=== PATIENT | female | born 1985 | race Caucasian/White ===

== ENCOUNTER 2017-01-18 20:55 | Emergency (ER) | payer MEDICAID, OTHER ==
[~2017-01-18 20:55] MED LIST: PREN0.01 PO; TYLE500T PO
[2017-01-18 20:59] VITALS: BP 118/72; PULSE 72; RESP 20; TEMP 97.9; O2SAT 99
--- NOTE | 2017-01-18 21:25 | PD ---
HPI Chief Complaint: Flank/Kidney Pain Time Seen by Provider: 21:05 Travel History International Travel<30 days: No Contact w/Intl Traveler<30days: No Traveled to known affect area: No History of Present Illness HPI The patient is a 4-year-old female that complains of bilateral flank pain, urgency and frequency without dysuria starting yesterday. She denies any fever but she never took her temperature at home. She denies any vomiting or diarrhea but does have nausea. She does not believe that she is . PFSH Past Medical History Arthritis: Yes Bipolar Disorder: Yes Anxiety: Yes (ANXIETY/PANIC ATTACKS) Depression: Yes Cardiovascular Problems: No Diminished Hearing: No Endocrine: No Gastrointestinal Disorders: Yes (ULCERATIVE COLITIS) Genitourinary: Yes Headaches: Yes Immune Disorder: No Musculoskeletal: Yes Neurologic: No Reproductive: Yes (endometriosis) Respiratory: Yes (ASTHMA CHILD) Immunizations Current: Yes LMP: MONDAY : 4 Para: 1 Miscarriage: 1 : 1 Dilation and Curettage (D&C): Yes Past Surgical History Abdominal Surgery: Yes (lapAroscopy x5, IUD RETRIEVAL) Section: Yes Cholecystectomy: Yes Gynecologic Surgery: Yes (LEEP & LAP PROCEDURE DONE) Oral Surgery: Yes Tonsillectomy: Yes Other Surgery: Yes (ADENOIDS AND TONSILS REMOVED, CHOLYCYSTECTOMY, C SEC, 4 LAPS ENDO) Social History Alcohol Use: No Tobacco Use: No (QUIT IN MAY 2014, COUPLE YEARS) 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 Her vital signs are normal. SKIN: Focused skin assessment warm/dry. No skin rash is seen. HEAD: Atraumatic. Normocephalic. EYES: Pupils equal and round. No scleral icterus. No injection or drainage. ENT: No nasal bleeding or discharge. Mucous membranes pink and moist. NECK: Trachea midline. No JVD. CARDIOVASCULAR: Regular rate and rhythm. No murmur appreciated. RESPIRATORY: No accessory muscle use. Clear to auscultation. Breath sounds equal bilaterally. GASTROINTESTINAL: Abdomen soft, with tenderness over both flanks, no guarding or rebound is present, nondistended. Hepatic and splenic margins not palpable. MUSCULOSKELETAL: No obvious deformities. No clubbing. No cyanosis. No edema. I am able to reproduce the patient's pain by pressing on the musculature both the left and to the right of the lumbar spine. NEUROLOGICAL: Awake and alert. No obvious cranial nerve deficits. Motor grossly within normal limits. Normal speech. PSYCHIATRIC: Appropriate mood and affect; insight and judgment normal. Data Data Last Documented VS Vital Signs Date Time Temp Pulse Resp B/P (MAP) Pulse Ox O2 Delivery O2 Flow Rate FiO2 01/18/17 22:45 64 18 120/73 (89) 100 Room Air 01/18/17 20:59 97.9 Orders Orders Ed Urine Pregnancytest Poc (01/18/17 21:21) Urinalysis - C+S If Indicated (01/18/17 21:25) Complete Blood Count With Diff (01/18/17 22:17) Comprehensive Metabolic Panel (01/18/17 22:17) Lipase (01/18/17 22:17) Ct Abd/Pel W/O Iv Contrast (01/18/17 22:17) Sodium Chlor 0.9% 1000 Ml Inj (Ns 1000 M (01/18/17 22:30) Ondansetron Inj (Zofran Inj) (01/18/17 22:30) Ketorolac Inj (Toradol Inj) (01/18/17 22:45) Labs Laboratory Tests Test 01/18/17 21:20 01/18/17 22:28 Urine Color YELLOW Urine Turbidity CLEAR Urine pH 6.0 Urine Specific [place] 1.033 Urine Protein TRACE mg/dL Urine Glucose (UA) NEG mg/dL Urine Ketones TRACE mg/dL Urine Occult Blood MOD Urine Nitrite NEG Urine Bilirubin NEG Urine Leukocyte Esterase NEG Urine RBC 3-5 /hpf Urine WBC 0-2 /hpf Urine Squamous Epithelial Cells 0-5 /hpf Urine Bacteria NONE /hpf Microscopic Urinalysis Comment CULT NOT INDICATED White Blood Count 5.4 TH/MM3 Red Blood Count 4.18 MIL/MM3 Hemoglobin 12.5 GM/DL Hematocrit 36.8 % Mean Corpuscular Volume 88.1 FL Mean Corpuscular Hemoglobin 30.0 PG Mean Corpuscular Hemoglobin Concent 34.1 % Red Cell Distribution Width 12.9 % Platelet Count 162 TH/MM3 Mean Platelet Volume 8.0 FL Neutrophils (%) (Auto) 45.5 % Lymphocytes (%) (Auto) 45.7 % Monocytes (%) (Auto) 6.7 % Eosinophils (%) (Auto) 1.6 % Basophils (%) (Auto) 0.5 % Neutrophils # (Auto) 2.4 TH/MM3 Lymphocytes # (Auto) 2.4 TH/MM3 Monocytes # (Auto) 0.4 TH/MM3 Eosinophils # (Auto) 0.1 TH/MM3 Basophils # (Auto) 0.0 TH/MM3 CBC Comment DIFF FINAL Differential Comment Blood Urea Nitrogen 11 MG/DL Creatinine 0.69 MG/DL Random Glucose 102 MG/DL Total Protein 7.1 GM/DL Albumin 4.0 GM/DL Calcium Level 8.9 MG/DL Alkaline Phosphatase 42 U/L Aspartate Amino Transf (AST/SGOT) 11 U/L Alanine Aminotransferase (ALT/SGPT) 27 U/L Total Bilirubin 0.3 MG/DL Sodium Level 140 MEQ/L Potassium Level 3.5 MEQ/L Chloride Level 106 MEQ/L Carbon Dioxide Level 26.1 MEQ/L Anion Gap 8 MEQ/L Estimat Glomerular Filtration Rate 100 ML/MIN Lipase 140 U/L MDM Medical Decision Making Medical Screen Exam Complete: Yes Emergency Medical Condition: Yes Medical Record Reviewed: Yes Interpretation(s) The [id number] urine test is negative. The urine shows specific gravity 1.033 with moderate amount of occult blood and trace ketones and trace protein. The red cells are 3-5. Urine is otherwise normal and culture is not indicated. The CT abdomen/pelvis without IV contrast shows mild constipation but no CT findings for colitis. It shows a small nonobstructing left renal calculi and slightly lobulated uterus which could indicate fibroids. There is a previous cholecystectomy present. The CBC is normal. The complete metabolic profile is normal. The lipase is normal. Differential Diagnosis Musculoskeletal pain, urinary stone, pyelonephritis, abdominal pain etiology undetermined, electrolyte disorder, anemia Narrative Course The patient appears to have musculoskeletal pain. The pain may have been the reason she was nauseated. I cannot identify any acute problems on the CT and the abdomen exam is unremarkable. I can reproduce the patient's pain by pressing on the musculature both of the left and the right of the back. The urine does show a small amount of blood. She needs to follow-up with her primary care physician and she is given all the blood work/imaging that we did here. The patient does have frequency and urgency of urination and flank pain. The urine was unremarkable except for blood but this may be an infection and we will also cover her with Cipro. Diagnosis Primary Impression: Musculoskeletal pain Additional Impression: Hematuria Additional Instructions: Increase your liquid intake. You have a very high specific gravity which means you are somewhat dehydrated. It is important to establish a good urine flow through your kidneys to fight a urine infection. The Motrin is taken one tablet 3 times daily for the pain and the Zofran is every 6 hours as needed for nausea. Med/Other Pt SpecificInfo: Prescription(s) given Scripts Ibuprofen (Ibuprofen) 600 Mg Tab 600 MG PO TID, #33 TAB 0 Refills Prov: Cameron Roth MD 01/18/17 Ondansetron (Zofran) 4 Mg Tab 4 MG PO Q6HR Y for NAUSEA OR VOMITING, #21 TAB 0 Refills Prov: Cameron Roth MD 01/18/17 Sulfamethoxazole-Trimethoprim (Bactrim DS) 800-160 Mg Tab 1 TAB PO BID for Infection, #20 TAB 0 Refills Prov: Cameron Roth MD 01/18/17 Disposition: 01 DISCHARGE HOME Condition: Stable Cameron Roth MD Jan 18, 2017 21:25
[2017-01-18 21:33] LABS: BLOOD, URINE MOD (NEG); GLUCOSE,URINE NEG (NEG); KETONE, URINE TRACE mg/dL (NEG); NITRITE,URINE NEG (NEG)
[2017-01-18 21:43] LABS: URINE COLOR YELLOW (YELLW/STRAW)
[2017-01-18 21:44] LABS: COMMENT (UR) CULT NOT INDICATED; CULTURE IF INDICATED CULT NOT INDICATED; SQUAMOUS EPITHELIAL CELL URINE 0-5 /hpf (0-5); WBC, URINE 0-2 /hpf (0-5)
[2017-01-18] MEDS ORDERED: ONDANSETRON HCL 4 MG/2 ML VIAL IV ONE (22:30)
[2017-01-18] MEDS ORDERED: SODIUM CHLOR 0.9% 1000 ML INJ 1,000 ML IV SCH (22:30)
[2017-01-18 22:32] LABS: AUTOMATED NEUTROPHIL # 2.4 TH/MM3 (1.8-7.7); BASOPHIL % 0.5 % (0.0-2.0); EOSINOPHIL # 0.1 TH/MM3 (0-0.4); EOSINOPHIL % 1.6 % (0.0-4.0); HEMATOCRIT 36.8 % (35.0-46.0); HEMO FLAGS DIFF FINAL; LYMPH % 45.7 % (9.0-44.0); LYMPHOCYTE # 2.4 TH/MM3 (1.0-4.8); MEAN CELL VOLUME 88.1 FL (80.0-100.0); MEAN CORPUSCULAR HGB CONC 34.1 % (32.0-36.0); MONO % 6.7 % (0.0-8.0); NEUT % 45.5 % (16.0-70.0); PLATELET COUNT 162 TH/MM3 (150-450); RED BLOOD COUNT 4.18 MIL/MM3 (4.00-5.30); RED CELL DISTRIBUTION WIDTH 12.9 % (11.6-17.2); WHITE BLOOD COUNT 5.4 TH/MM3 (4.0-11.0)
[2017-01-18 22:41] LABS: CHLORIDE 106 MEQ/L (98-107); POTASSIUM 3.5 MEQ/L (3.5-5.1); SODIUM (NA) 140 MEQ/L (136-145)
[2017-01-18 22:45] VITALS: BP 120/73; PULSE 64; RESP 18; O2SAT 100
[2017-01-18 22:45] LABS: ANION GAP 8 MEQ/L (5-15); BICARBONATE 26.1 MEQ/L (21.0-32.0); BLOOD UREA NITROGEN 11 MG/DL (7-18)
[2017-01-18] MEDS ORDERED: KETOROLAC TROMETHAMINE 60 MG/2 ML (IM) VIAL IVP ONE (22:45)
[2017-01-18 22:47] LABS: ALT (GPT) 27 U/L (10-53)
[2017-01-18 22:48] LABS: AST (GOT) 11 U/L (15-37); GLOMERULAR FILTRATION RATE 100 ML/MIN (>89)
[2017-01-18 22:49] LABS: TOTAL BILIRUBIN ADULT 0.3 MG/DL (0.2-1.0)
[2017-01-18 22:50] LABS: ALKALINE PHOSPHATASE 42 U/L (45-117)
--- NOTE | 2017-01-18 23:00 | RADRPT ---
EXAM DATE/TIME: 01/18/2017 22:39 [facility] COMPARISON: No previous studies available for comparison. INDICATIONS : Bilateral abdomen pain. ORAL CONTRAST: No oral contrast ingested. RADIATION DOSE: 16.64 CTDIvol (mGy) MEDICAL HISTORY : Ulcerative colitis. Endometriosis. SURGICAL HISTORY : section. Cholecystectomy. ENCOUNTER: Initial ACUITY: 1 day PAIN SCALE: 5/10 LOCATION: Bilateral flank abdomen TECHNIQUE: Volumetric scanning of the abdomen and pelvis was performed. Using automated exposure control and ad justment of the mA and/or kV according to patient size, radiation dose was kept as low as reasonably achievable to obtain optimal diagnostic quality images. DICOM format image data is available electro nically for review and comparison. FINDINGS: Bases are clear. No acute findings in the liver, spleen, adrenals, kidneys or pancreas. 2 tiny nonobs tructing calculi lower pole left kidney. Previous cholecystectomy. No bowel obstruction. No free air or free fluid. Uterus has a slightly lobulated appearance which cou ld indicate fibroid involvement. Otherwise no pelvic masses. No acute bony abnormalities. No CT findi ngs of colitis. Mild constipation. CONCLUSION: 1. Mild constipation. No CT findings for colitis. 2. Small nonobstructing left renal calculi. 3. Slightly lobulated uterus which can indicate fibroid involvement. 4. Previous cholecystectomy. Natan Abdi MD on January 18, 2017 at 22:56 Board Certified Radiologist. This report was verified electronically.
[2017-01-18] MEDS ORDERED: BACT800T5 PO (23:22)
[2017-01-18] MEDS ORDERED: ZOFR4TAB PO (23:22)
[2017-01-18] MEDS ORDERED: IBUP-232 PO (23:22)
[2017-01-18] MEDS ORDERED: SULFAMETHOXAZOLE-TRIMETHOPRIM DS 800-160 MG TAB PO ONE (23:30)
[2017-01-18 23:37] VITALS: RESP 18
[2017-01-18 23:51] VITALS: BP 124/79; TEMP 97.7
== END 2017-01-18 23:51 | disposition home or self-care (01) ==
LOC: PHED 20:55
DX: M79.1 Myalgia (principal); N20.0 Calculus of kidney
CPT/HCPCS: 74176; 80053; 81001; 83690; 84703; 85025; 96361; 96374; 96375; 99285; J1885; J2405; J7030